=== PATIENT | female | born 1945 | race Caucasian/White ===

== ENCOUNTER → 2017-07-27 | Outpatient (CLI) | payer MEDICARE, OTHER ==
[~2017-07-27] MED LIST: ADVAIR 500/28 DISKU1 IH; CALCIUM600 M2 PO; COZAAR100 MG PO; DYAZIDE 25 MG-31 CAP PO; FLOVENT 110MCG7.9 GM IH; FOSAMAX 70MG TA70 MG PO; IRON TABLETS325 MG PO; LIPOFEN150 MG PO; LOPRESSOR100 MG PO; MOBIC 7.5MG7.5 MG PO; MUCINEX 60600 MG/TA1 PO; MUCINEX PO; MULTIPLE VITAMI1 TAB PO; NORVASC10 MG PO; PHENERGAN50 M1 PO; PRAVACHOL 40MG40 MG PO; PRIL40 PO; SINGULAIR 110 MG/TAB PO; SINGULAIR10 MG PO; TOPROL XL100 MG PO; TOPROL XL50 MG PO; TRAMADOL50 MG PO; TRIAMTERENE AND1 TAB PO; TRICOR 48MG48 MG PO; TYLENOL 500MG500 MG PO; ULTRAM 50MG TAB50 MG PO; VITAMIN D2000 I1 PO; VITAMIN D50000 IU PO; ZOCOR 20MG20 MG PO
== END ==
LOC: MC.RAD 10:08
DX: Z12.31 Encounter for screening mammogram for malignant neoplasm of breast (principal)

== ENCOUNTER → 2018-08-08 | Outpatient (CLI) | payer MEDICARE, OTHER | LOC: MC.RAD 09:20 | DX: Z12.31 Encounter for screening mammogram for malignant neoplasm of breast (principal) ==

== ENCOUNTER 2018-08-11 07:25 | Outpatient (CLI) | payer MEDICARE, OTHER ==
[~2018-08-11] VITALS: Ht 149.9 cm; Wt 63.0 kg
[~2018-08-11 07:25] MED LIST changes: -ADVAIR 500/28 DISKU1 IH; -CALCIUM600 M2 PO; +MULTIPLE VITAMI1 TA5 PO; -MULTIPLE VITAMI1 TAB PO; +OYSTER SHELL C500 M4 PO; +RT ADVAIR 528 DISKUS IH; -VITAMIN D2000 I1 PO; +VITAMIN D31000 I1 PO
[2018-08-11 08:00] LABS: HEMATOCRIT 41.8 % (37.0-47.0); MEAN CELL VOLUME 88 fl (80.0-100.0); MEAN CORPUSCULAR HEMOGLOBIN 30 pg (27.0-31.0); MEAN CORPUSCULAR HGB CONC 34 g/dl (33.0-37.0); MEAN PLATELET VOLUME 9.8 fl (7.4-10.4); PLATELET COUNT 384 K/mm3 (130-400); RED BLOOD COUNT 4.73 M/mm3 (4.10-5.30); REDCELL DISTRIBUTION WIDTH-CV 12.3 % (11.5-14.5)
[2018-08-11 08:06] LABS: PROTHROMBIN TIME 10.8 SECONDS (9.7-12.8)
[2018-08-11 08:10] VITALS: BP 162/96; PULSE 110; TEMP 98.8
[2018-08-11 08:14] LABS: CALCIUM 10.2 mg/dL (8.4-10.2); CREATININE, serum 0.65 mg/dL (0.52-1.25); POTASSIUM 3.7 mmol/L (3.4-5.0)
[2018-08-11] MEDS ORDERED: FLONASE NASAL S16 GM NS (08:38)
[2018-08-11] MEDS ORDERED: ATARAX 25MG25 MG/TAB PO (08:38)
[2018-08-11] MEDS ORDERED: CARDIZEM120 MG PO (08:39)
[2018-08-11] MEDS ORDERED: MUCINEX 60600 MG/TA1 PO (08:40)
[2018-08-11] MEDS ORDERED: PROAIR HFA0.09 MG/AC IH (08:40)
[2018-08-11] MEDS ORDERED: ALEVE 220MG220 MG PO (08:42)
[2018-08-11 09:55] VITALS: BP 119/86; PULSE 102
[2018-08-11 10:10] VITALS: BP 140/82; PULSE 104
[2018-08-11 10:25] VITALS: BP 120/76; PULSE 103; TEMP 98.2
[2018-08-11 10:40] VITALS: BP 122/80; PULSE 99
[2018-08-11 10:55] VITALS: BP 134/77; PULSE 104
== END 2018-08-11 11:39 | disposition home or self-care (01) ==
LOC: COL.RAD 07:25
PROVIDERS: Internal Medicine Interventional Cardiology
DX: I34.0 Nonrheumatic mitral (valve) insufficiency (principal)
CPT/HCPCS: J2250; J3010

== ENCOUNTER → 2019-09-06 | Outpatient (CLI) | payer MEDICARE, OTHER ==
[~2019-09-06] MED LIST changes: +ALEVE 220MG220 MG PO; +ATARAX 25MG25 MG/TAB PO; +CARDIZEM120 MG PO; +FLONASE NASAL S16 GM NS; +PROAIR HFA0.09 MG/AC IH
== END ==
LOC: MC.RAD 07:57
DX: Z12.31 Encounter for screening mammogram for malignant neoplasm of breast (principal)

== ENCOUNTER → 2020-09-08 | Outpatient (CLI) | payer MEDICARE, OTHER | LOC: MC.RAD 09:40 | DX: Z12.31 Encounter for screening mammogram for malignant neoplasm of breast (principal) ==

== ENCOUNTER → 2021-07-09 | Outpatient (CLI) | payer MEDICARE, OTHER | LOC: COL.CARD 11:10 | DX: Z01.810 Encounter for preprocedural cardiovascular examination (principal); I10 Essential (primary) hypertension ==

== ENCOUNTER → 2021-08-05 | Outpatient (CLI) | payer MEDICARE, OTHER | LOC: COL.CARD 11:12 | DX: I10 Essential (primary) hypertension (principal) ==

== ENCOUNTER → 2021-09-28 | Outpatient (CLI) | payer MEDICARE, OTHER | LOC: MC.RAD 08:46 | DX: N63.10 Unspecified lump in the right breast, unspecified quadrant (principal) ==

== ENCOUNTER → 2021-11-30 | Outpatient (CLI) | payer MEDICARE, OTHER ==
[~2021-11-30] MED LIST changes: +APRESOLINE50 MG PO; +ASPIRIN 81M81 MG/TA2 PO; +CELEXA40 MG PO; +COREG 25MG25 MG/TAB PO; +RT SPIRIVA18 MCG IH; +TRICOR145 MG PO; +TURMERIC500 MG PO; +ZETIA 10MG TAB10 MG PO
== END ==
LOC: MC.RAD 10:06
DX: D24.1 Benign neoplasm of right breast (principal)

== ENCOUNTER → 2022-06-07 | Outpatient (CLI) | payer MEDICARE, OTHER | LOC: MC.RAD 08:49 | DX: Z86.000 Personal history of in-situ neoplasm of breast (principal) ==

== ENCOUNTER → 2023-11-22 | Outpatient (CLI) | payer MEDICARE, OTHER | LOC: MC.RAD 07:51 | DX: Z12.31 Encounter for screening mammogram for malignant neoplasm of breast (principal) ==

== ENCOUNTER 2024-06-25 12:59 | Emergency (ER) | payer MEDICARE, OTHER ==
[~2024-06-25] VITALS: Ht 149.9 cm; Wt 68.2 kg
[2024-06-25 13:12] VITALS: TEMP 97.7
[2024-06-25] MEDS ORDERED: dilTIAZem 25 MG/5 ML VIAL IV ONE (13:30)
[2024-06-25 13:43] LABS: BASO # 0.1 K/mm3 (0.0-0.2); BASO % 1.2 % (0.0-2.0); EOS # 0.2 K/mm3 (0.0-0.7); EOS % 3.2 % (0.0-4.0); GRAN # 5.2 K/mm3 (1.4-6.5); GRAN % 69.1 % (42.2-75.2); HEMOGLOBIN 11.1 g/dl (12.5-16.0); LYMPH # 1.3 K/mm3 (1.2-3.4); LYMPH % 16.8 % (20.0-51.0); MEAN CELL VOLUME 90 fl (80.0-100.0); MEAN CORPUSCULAR HEMOGLOBIN 28 pg (27-31); MEAN CORPUSCULAR HGB CONC 31 g/dl (33.0-37.0); MEAN PLATELET VOLUME 9.4 fl (7.4-10.4); MONO # 0.7 K/mm3 (0.1-0.6); MONO % 9.2 % (1.7-9.3); PLATELET COUNT 349 K/mm3 (130-400); RED BLOOD COUNT 3.97 M/mm3 (4.10-5.30); REDCELL DISTRIBUTION WIDTH-CV 14.6 % (11.5-14.5)
[2024-06-25 13:48] LABS: HEMATOCRIT 35.8 % (37.0-47.0)
[2024-06-25 14:12] LABS: ALBUMIN 3.3 g/dL (3.4-4.8); BILIRUBIN,TOTAL 0.3 mg/dL (0.2-1.2); CALCIUM 9.3 mg/dL (8.4-10.2); CREATININE, serum 1.42 mg/dL (0.57-1.11); POTASSIUM 4.1 mEq/L (3.5-4.5)
[2024-06-25 14:23] LABS: TROPONIN-I 0.021 ng/mL (0.00-0.033)
[2024-06-25 14:45] VITALS: BP 115/69; PULSE 98
== END 2024-06-25 14:46 | disposition home or self-care (01) ==
LOC: COL.ER 12:59
PROVIDERS: Physician Assistant
DX: I48.91 Unspecified atrial fibrillation (principal); Z79.01 Long term (current) use of anticoagulants; Z95.818 Presence of other cardiac implants and grafts; Z89.511 Acquired absence of right leg below knee; Z98.890 Other specified postprocedural states; Z90.710 Acquired absence of both cervix and uterus; Z79.82 Long term (current) use of aspirin; Z79.899 Other long term (current) drug therapy

== ENCOUNTER 2024-07-07 08:50 | Emergency (ER) | payer MEDICARE, OTHER ==
[~2024-07-07] VITALS: Ht 149.9 cm; Wt 68.2 kg
[2024-07-07 09:08] VITALS: TEMP 98.6
[2024-07-07 11:53] LABS: BASO # 0.1 K/mm3 (0.0-0.2); BASO % 1.4 % (0.0-2.0); EOS # 0.3 K/mm3 (0.0-0.7); EOS % 3.9 % (0.0-4.0); GRAN # 4.8 K/mm3 (1.4-6.5); GRAN % 66.8 % (42.2-75.2); LYMPH # 1.2 K/mm3 (1.2-3.4); MEAN CELL VOLUME 89 fl (80.0-100.0); MEAN CORPUSCULAR HGB CONC 31 g/dl (33.0-37.0); MEAN PLATELET VOLUME 9.3 fl (7.4-10.4); MONO # 0.8 K/mm3 (0.1-0.6); MONO % 10.5 % (1.7-9.3); PLATELET COUNT 361 K/mm3 (130-400); RED BLOOD COUNT 3.55 M/mm3 (4.10-5.30); REDCELL DISTRIBUTION WIDTH-CV 15.6 % (11.5-14.5)
[2024-07-07 11:56] LABS: HEMATOCRIT 31.5 % (37.0-47.0); HEMOGLOBIN 9.9 g/dl (12.5-16.0); MEAN CORPUSCULAR HEMOGLOBIN 28 pg (27-31)
[2024-07-07 11:59] LABS: PROTHROMBIN TIME 21.8 SECONDS (9.7-12.8)
[2024-07-07 12:08] LABS: ALBUMIN 3.3 g/dL (3.4-4.8); BILIRUBIN,TOTAL 0.6 mg/dL (0.2-1.2); CALCIUM 9.1 mg/dL (8.4-10.2); CREATININE, serum 1.79 mg/dL (0.57-1.11); POTASSIUM 4.1 mEq/L (3.5-4.5); TOTAL PROTEIN 6.8 g/dl (6.2-8.1)
[2024-07-07 14:19] VITALS: BP 145/74; PULSE 98
== END 2024-07-07 15:07 | disposition short-term general hospital (02) ==
LOC: COL.ER 08:50
PROVIDERS: Family Medicine
DX: M79.661 Pain in right lower leg (principal); R22.41 Localized swelling, mass and lump, right lower limb; Z79.01 Long term (current) use of anticoagulants; I48.91 Unspecified atrial fibrillation